=== PATIENT | male | born 1975 | race Caucasian/White ===

== ENCOUNTER 2018-08-21 08:51 | Emergency (ER) | payer SELFPAY ==
[~2018-08-21] VITALS: Ht 182.9 cm; Wt 131.5 kg
[2018-08-21 12:12] VITALS: BP 133/73
[2018-08-23 08:44] LABS: Hepatitis B Surface Antibody Negative
[2018-08-23 09:02] LABS: Hepatitis B Surface Antigen Negative (Negative)
== END 2018-08-21 12:41 | disposition home or self-care (01) ==
LOC: ER 08:51
DX: Z77.21 Contact with and (suspected) exposure to potentially hazardous body fluids (principal); Z88.6 Allergy status to analgesic agent; Z88.2 Allergy status to sulfonamides; Z88.1 Allergy status to other antibiotic agents
CPT/HCPCS: 36415; 86703; 86706; 86803; 87340